=== PATIENT | female | born 1995 | race Two or more races ===

== ENCOUNTER 2022-06-17 14:21 | Emergency (ER) | payer OTHER ==
[~2022-06-17] VITALS: Ht 160 cm; Wt 81.6 kg
[2022-06-17] MEDS ORDERED: LAMICTAL100 MG PO (14:34)
== END 2022-06-17 17:55 | disposition home or self-care (01) ==
LOC: ER 14:21
DX: O03.9 Complete or unspecified spontaneous abortion without complication (principal)